=== PATIENT | female | born 1970 | race Caucasian/White ===

== ENCOUNTER → 2019-10-26 10:50 | Outpatient (BNVA) | payer MEDICAID, SELFPAY | PROVIDERS: Family Provider Nurse Practitioner Family; Visit Provider Social Worker | DX: F43.12 Post-traumatic stress disorder, chronic (principal) | CPT/HCPCS: 90834 ==

== ENCOUNTER → 2019-11-30 09:15 | Outpatient (BNVA) | payer MEDICAID, SELFPAY | PROVIDERS: Family Provider Nurse Practitioner Family; Visit Provider Nurse Practitioner | DX: F43.12 Post-traumatic stress disorder, chronic (principal); F17.211 Nicotine dependence, cigarettes, in remission | CPT/HCPCS: 99213 ==

== ENCOUNTER 2020-01-31 08:21 | Outpatient (CLI) | payer MEDICAID, SELFPAY ==
--- NOTE | 2020-01-31 | CT_ITS ---
WS: [id number] CT ABDOMEN AND PELVIS NONCONTRAST HISTORY: HEMATURIA TECHNIQUE: Imaging performed through the abdomen and pelvis. Coronal and sagittal reformats are submi tted. All CT scans at [facility] use at least one of these dose optimization techniques: automated exposure control; mA and/or kV adjustment per patient size (includes targeted exams where d ose is matched to clinical indication); or iterative reconstruction. DLP: 759.37 mGy.cm COMPARISON: 11/19/2018 Lower thorax: Linear platelike atelectasis at the RIGHT lung base. Liver: Normal, no mass or intrahepatic dilatation. Gallbladder: Unremarkable. Pancreas: Normal. Spleen: Normal. Adrenal glands: Normal. Right kidney: Mild enlargement and perinephric stranding. There is mild to moderate dilatation of the RIGHT renal pelvis and RIGHT ureter. Mildly tortuous elongated ureter. The ureter is dilated through out its course secondary to 5 mm calcification at the UV junction. There is moderate periureteral william ma and stranding. Left kidney: Partial nephrectomy lower pole. Recently described small cyst in the mid kidney is not e vident by unenhanced CT. Mild atherosclerosis aorta with no aneurysm. Prior abdominal aorta bypass surgery. There is also evid ence for prior bypass of the celiac axis and possible SMA. No prior postsurgical studies to evaluate for interval change. There are a few small shoddy retroperitoneal lymph nodes. No adenopathy. GI tract: Normal appendix. Moderate fecal retention throughout the colon with no obstructive pattern. Abdominal wall: Postsurgical changes along the anterior abdominal wall. Pelvis: Well-distended urinary bladder. No free fluid in the pelvis. Osseous structures: Unremarkable. CT/CT kidney stone [id number] IMPRESSION: 1. Mild/moderate RIGHT hydroureteronephrosis secondary to a 5 mm calcification at the UV junction. 2. Moderate inflammatory changes in the RIGHT retroperitoneum from the obstruc tive renal process with tortuosity of the RIGHT ureter. 3. Partial nephrectomy lower pole LEFT kidney. 4. Prior abdominal aorta bypass.
--- NOTE | 2020-01-31 08:00 | US_ITS ---
WS: [id number] RENAL ULTRASOUND HISTORY: Renal cyst COMPARISON: 12/27/2018 TECHNIQUE: 2-D and color Doppler imaging of the kidney submitted. Right kidney: 12.7 cm x 6.3 cm x 6.8 cm. Normal size kidney with moderate hydronephrosis. Proximal ureter is dilated. No mass. Left kidney: 10.4 cm x 4.5 cm x 6.2 cm. Cortical thinning lower pole LEFT kidney. By history patient had a partial nephrectomy. Cortical hypo density which is probably a minimally complex cyst in the mid kidney measures 1.5 x 1.4 x 1.3 cm. Aorta: Normal. Urinary Bladder: Minimally distended urinary bladder. US/US renal BI* [id number] IMPRESSION: 1. Moderate RIGHT hydronephrosis of uncertain etiology. Consider follow-up non contrast CT evaluation to evaluate for possible renal/ureteral stone. 2. Partial nephrectomy lower pole LEFT kidney. 3. Minimally complex cyst mid LEFT kidney similar to the prior study of 019.
== END 2020-01-31 08:22 | disposition home or self-care (01) ==
LOC: RAD 08:23
PROVIDERS: Family Provider Nurse Practitioner Family; PCP Nurse Practitioner Family; Visit Provider Urology
DX: R31.9 Hematuria, unspecified (principal); N28.1 Cyst of kidney, acquired; N13.30 Unspecified hydronephrosis; Z90.5 Acquired absence of kidney; N13.8 Other obstructive and reflux uropathy
CPT/HCPCS: 74176; 76770; 81001

== ENCOUNTER 2020-02-09 08:29 | Outpatient (CLI) | payer MEDICAID, SELFPAY ==
--- NOTE | 2020-02-09 08:15 | XR_ITS ---
WS: [id number] XR KUB [id number] REASON FOR EXAM: RIGHT DISTAL URETERAL CALCULUS FINDINGS: A calcified density is seen in the distal right ureter area suspicious of a small stone the remaining kidneys ureter were normal. No obstructing changes. XR/XR KUB [id number] IMPRESSION: Stable small stone in the distal right ureter.
== END 2020-02-09 08:30 | disposition home or self-care (01) ==
LOC: RAD 08:31
PROVIDERS: Family Provider Nurse Practitioner Family; PCP Nurse Practitioner Family; Visit Provider Urology
DX: N20.1 Calculus of ureter (principal)
CPT/HCPCS: 74018; 81001; 82365

== ENCOUNTER → 2020-02-22 07:42 | Outpatient (BNVA) | payer MEDICAID, SELFPAY | PROVIDERS: Family Provider Nurse Practitioner Family; PCP Nurse Practitioner Family; Visit Provider Nurse Practitioner | DX: F43.12 Post-traumatic stress disorder, chronic (principal) | CPT/HCPCS: 90832; 99213 ==

== ENCOUNTER → 2020-05-09 08:30 | Outpatient (BNVA) | payer MEDICAID, SELFPAY | PROVIDERS: Family Provider Nurse Practitioner Family; PCP Nurse Practitioner Family; Visit Provider Nurse Practitioner | DX: F43.12 Post-traumatic stress disorder, chronic (principal) | CPT/HCPCS: 99213 ==

== ENCOUNTER → 2020-08-01 08:00 | Outpatient (BNVA) | payer MEDICAID, SELFPAY | PROVIDERS: Family Provider Nurse Practitioner Family; PCP Nurse Practitioner Family; Visit Provider Nurse Practitioner | DX: F43.12 Post-traumatic stress disorder, chronic (principal); F17.211 Nicotine dependence, cigarettes, in remission | CPT/HCPCS: 99214 ==

== ENCOUNTER → 2020-09-05 07:54 | Outpatient (BNVA) | payer MEDICAID, SELFPAY | PROVIDERS: Family Provider Nurse Practitioner Family; PCP Nurse Practitioner Family; Visit Provider Nurse Practitioner | DX: F43.12 Post-traumatic stress disorder, chronic (principal) | CPT/HCPCS: 99213 ==

== ENCOUNTER → 2020-09-10 08:08 | Outpatient (BNVA) | payer MEDICAID, SELFPAY | PROVIDERS: Family Provider Nurse Practitioner Family; PCP Nurse Practitioner Family; Visit Provider Specialist | DX: G62.9 Polyneuropathy, unspecified (principal); R20.2 Paresthesia of skin; R20.0 Anesthesia of skin; D44.5 Neoplasm of uncertain behavior of pineal gland; Z87.891 Personal history of nicotine dependence | CPT/HCPCS: 95886; 95909; 99202; G0463 ==

== ENCOUNTER → 2020-10-17 07:50 | Outpatient (BNVA) | payer MEDICAID, SELFPAY | PROVIDERS: Family Provider Nurse Practitioner Family; PCP Nurse Practitioner Family; Visit Provider Nurse Practitioner | DX: F43.12 Post-traumatic stress disorder, chronic (principal) | CPT/HCPCS: 99213 ==

== ENCOUNTER → 2021-02-18 10:47 | Outpatient (BNVA) | payer MEDICAID, SELFPAY | PROVIDERS: Family Provider Nurse Practitioner Family; PCP Nurse Practitioner Family; Visit Provider Specialist | DX: D44.5 Neoplasm of uncertain behavior of pineal gland (principal); R20.0 Anesthesia of skin; R20.2 Paresthesia of skin; Z87.891 Personal history of nicotine dependence | CPT/HCPCS: 99214 ==

== ENCOUNTER 2021-02-18 12:23 | Outpatient (CLI) | payer MEDICAID, SELFPAY ==
[2021-02-18 13:59] LABS: Folate Level 6.2 ng/mL (4.8-37.3)
[2021-02-18 14:02] LABS: C Reactive Protein 0.6 mg/L (0.0-4.9); Thyroid Stimulating Hormone 0.82 uIU/mL (0.27-4.20)
[2021-02-18 14:20] LABS: Erythrocyte Sedimentation Rate 10 mm/hr (0-15)
[2021-02-18 14:59] LABS: Vitamin B12 > 2000 pg/mL (232-1245)
[2021-02-19 12:43] LABS: CENTROMERE B ANTIBODY <1.0 NEG AI (<1.0 NEG); JO-1 ANTIBODY <1.0 NEG AI (<1.0 NEG); RNP ANTIBODY <1.0 NEG AI (<1.0 NEG); SCL-70 ANTIBODY <1.0 NEG AI (<1.0 NEG); SJOGREN'S ANTIBODY (SS-A) <1.0 NEG AI (<1.0 NEG); SM ANTIBODY <1.0 NEG AI (<1.0 NEG); SS-B <1.0 NEG AI (<1.0 NEG)
[2021-02-19 17:14] LABS: THYROID PEROXIDASE ANTIBODIES 1 IU/mL (<9)
[2021-02-20 11:22] LABS: COMPLEMENT COMPONENT C3C 113 mg/dL (83-193); COMPLEMENT COMPONENT C4C 20 mg/dL (15-57)
[2021-02-20 12:27] LABS: COMPLEMENT, TOTAL (CH50) 43 U/mL (31-60)
[2021-02-20 13:34] LABS: ANA SCREEN, IFA NEGATIVE (NEGATIVE)
[2021-02-24 03:43] LABS: Methylmalonic Acid 75 nmol/L (87-318)
[2021-02-24 23:53] LABS: DNA AB (DS) CRITHIDIA,IFA NEGATIVE (NEGATIVE)
== END 2021-02-18 12:24 | disposition home or self-care (01) ==
PROVIDERS: Family Provider Nurse Practitioner Family; PCP Nurse Practitioner Family; Visit Provider Specialist
DX: R20.0 Anesthesia of skin (principal); R20.2 Paresthesia of skin
CPT/HCPCS: 82607; 82746; 83921; 84260; 84443; 85651; 86140; 86160; 86162; 86235; 86255; 86376; 86431

== ENCOUNTER → 2021-03-06 08:06 | Outpatient (BNVA) | payer MEDICAID, SELFPAY | PROVIDERS: Family Provider Nurse Practitioner Family; PCP Nurse Practitioner Family; Visit Provider Nurse Practitioner | DX: F43.12 Post-traumatic stress disorder, chronic (principal) | CPT/HCPCS: 99214 ==

== ENCOUNTER → 2021-04-24 15:13 | Outpatient (BNVA) | payer MEDICAID, SELFPAY | PROVIDERS: Family Provider Nurse Practitioner Family; PCP Nurse Practitioner Family; Visit Provider Nurse Practitioner | DX: F43.12 Post-traumatic stress disorder, chronic (principal) | CPT/HCPCS: 99214 ==

== ENCOUNTER 2021-05-02 07:35 | Outpatient (CLI) | payer MEDICAID, SELFPAY ==
--- NOTE | 2021-05-02 07:30 | XR_ITS ---
WS: [id number] XR KUB [id number] REASON FOR EXAM: N20.1 - Calculus of ureter FINDINGS: The examination is unchanged compared to previous study of 02/09/2020. No intrarenal calculi are identified. CT scan 01/31/2020 demonstrated a very small calculus in the right ureteral vesicle junction with righ t hydronephrosis. A KUB report indicated presence of the calculus 02/09/2020. The pelvis calcifications are unchanged at this time making it very unlikely that the previous calculus was a small ureteroves ical stone. Likely that stone was not visualized or had passed. XR/XR KUB [id number] IMPRESSION: The current abdomen study is unchanged compared to the previous study. No right ureteral calculus is thought to be present as discussed above.
== END 2021-05-02 07:36 | disposition home or self-care (01) ==
LOC: RAD 07:41
PROVIDERS: PCP Nurse Practitioner Family; Visit Provider Urology
DX: N20.1 Calculus of ureter (principal)
CPT/HCPCS: 74018; 81003; 87077; 87086; 87184

== ENCOUNTER 2021-05-03 12:52 | Outpatient (CLI) | payer MEDICAID, SELFPAY ==
--- NOTE | 2021-05-03 13:01 | MR_ITS ---
WS: [id number] MRI RIGHT SHOULDER ARTHROGRAM TECHNIQUE: Axial PD, coronal T2, axial T1, post gadolinium coronal T1, sagittal T1, and coronal T2 po st gadolinium fat saturation technique CLINICAL INFORMATION: PAIN OF RIGHT SHOULDER JOINT COMPARISON: None. FINDINGS: Mild degenerative arthritis AC joint with mild downsloping of the acromion. No significant subacromia l/subdeltoid fluid. Minimal edema at the AC joint. Mild chronic thinning of the distal supraspinatus which appears intact. Normal infraspinatus. Normal teres minor. Normal subscapularis. No high-grade r otator cuff tear. Normal biceps tendon in the bicipital groove. Normal bone marrow signal in the humerus and glenoid. N ormal biceps labral anchor.Normal intra-articular biceps tendon. Glenoid labrum appears normal. No acute appearing labral tears. Normal middle glenohumeral ligament. MR/MR shoulder RT wo/w con [id number] IMPRESSION: 1. Mild degenerative arthritis at the AC joint with mild downsloping of the ac romium with slight impingement on the distal supraspinatus. Mild chronic thinni ng of the distal supraspinatus which appears intact with trace tendinopathy. 2. Rotator cuff is otherwise normal. 3. Normal intra-articular biceps tendon. Normal biceps tendon in the bicipital groove. 4. Normal biceps labral anchor. No acute appearing labral tears.
--- NOTE | 2021-05-03 13:04 | IR_ITS ---
WS: [id number] Exam: IR arthrogram shoulderRT [id number] Date/Time of Exam: 05/03/2021 1:05 PM Reason For Exam: PAIN IN RIGHT SHOULDER The procedure and potential complications were explained to the patient in detail. Written exams obta ined. The right shoulder was prepped and draped in a sterile fashion. The soft tissues were anesthetized wi th several cc of 1% Xylocaine. A 22-gauge spinal needle was positioned in the glenohumeral joint. Sev eral cc of nonionic radiographic contrast injected to confirm needle location. Approximately 13 cc of a solution consisting of 0.4 mg of gadolinium with 100 mL of sterile saline were injected into the r ight glenohumeral joint under fluoroscopic visualization. The patient tolerated the procedure without incident.
[2021-05-03] MEDS: iohexol 240 mg/mL 50 mL Btl INTRA-ARTI (14:01)
== END 2021-05-03 12:53 | disposition home or self-care (01) ==
PROVIDERS: PCP Nurse Practitioner Family; Visit Provider Nurse Practitioner Family
DX: M19.011 Primary osteoarthritis, right shoulder (principal)
CPT/HCPCS: 23350; 73223; 77002; Q9966

== ENCOUNTER → 2021-06-20 09:20 | Outpatient (BNVA) | payer MEDICAID, SELFPAY | PROVIDERS: PCP Nurse Practitioner Family; Visit Provider Nurse Practitioner Family | DX: N30.20 Other chronic cystitis without hematuria (principal) | CPT/HCPCS: 81003; 87086 ==

== ENCOUNTER 2021-07-26 07:57 | Outpatient (CLI) | payer MEDICAID, SELFPAY ==
--- NOTE | 2021-07-26 08:00 | CT_ITS ---
WS: [id number] CT ABDOMEN PELVIS TECHNIQUE: Noncontrast CT of the abdomen and contrast-enhanced CT of the abdomen and pelvis with mansoor nal and sagittal reformatted images. CLINICAL INFORMATION: HEMATURIA COMPARISON: CT January 31, 2020 DLP: 1447.[address] scans at [facility] use at least one of these dose optimization techniques: automated e xposure control; mA and/or kV adjustment per patient size (includes targeted exams where dose is matc hed to clinical indication); or iterative reconstruction. FINDINGS: Prior postoperative changes partial nephrectomy lower pole left kidney. Previously described right hy dronephrosis has resolved. No obstructing right renal ureteral calculi today. Tiny calculus at the left UPJ measuring 3 mm. Mild left ureterectasis at the left UPJ. Diffuse left u reteral enhancement with stricture in the left proximal ureter just distal to the UPJ and distal to t he calculus. Apparent stricture in this location. Recommend correlation with ureteroscopy to exclude underlying urothelial lesion. Ureter distal to the stricture is normal caliber. Delayed ureteral excr etion. Normal left renal parenchymal enhancement. Numerous left renal cysts the largest measuring 2.0 cm in the left. Lung bases are well aerated. Adrenal glands are normal. Normal caliber abdominal aorta. Aortic calcif ication. No evidence of small or large bowel obstruction. No free fluid in the pelvis. Mild bladder wall thick ening. Small fat-containing periumbilical hernia. Upper abdominal mesenteric bypass. Celiac stent. Le ft ovarian cyst measuring 2.[address]/CT abdomen pelvis wo/w [id number] IMPRESSION: 1. Small calculus at the left UPJ measuring 3 mm with diffuse urothelial enhan cement. Stricture distal to the calculus with partial ureteral obstruction and delayed emptying. No contrast middle and distal ureter on the delayed imaging. Recommend further evaluation with ureteroscopy to assess stricture and exclude underlying urothelial lesion. 2. Bilateral renal cysts largest in the left measuring 2 cm. 3. Fat-containing umbilical hernia. 4. Previously described right hydronephrosis has resolved. No obstructing righ t renal or ureteral calculi.
[2021-07-26] MEDS: iohexol 300 mg/mL 100 mL Btl IV (08:28)
== END 2021-07-26 07:58 | disposition home or self-care (01) ==
LOC: RAD 07:59
PROVIDERS: PCP Nurse Practitioner Family; Visit Provider Urology
DX: F43.12 Post-traumatic stress disorder, chronic (principal); F41.1 Generalized anxiety disorder; R31.9 Hematuria, unspecified
CPT/HCPCS: 74178; 81003; 87635; 99214

== ENCOUNTER 2021-08-01 11:14 | Day surgery (SDC) | payer MEDICAID, SELFPAY ==
[2021-07-31 14:49] VITALS: BMI 22.9
[2021-08-01] VITALS (17 sets, daily range): BP systolic 123–147; BP diastolic 73–89; PULSE 51–88; RESP 12–19; TEMP 36.3–37.1; O2SAT 94–100; BMI 25.1
--- NOTE | 2021-08-01 | SCC_ITS ---
Procedure Done: 1. Cystoscopy with LEFT retrograde ureteropyelogram 2. Left ureteroscopy 162.3 seconds of fluoroscopic guidance, for a cumulative dose of 25.04 mGy, was provided to Dr. Jones by the radiology department. C-arm images of the abdomen were saved for the patient's permanent record. [facility]
--- NOTE | 2021-08-01 11:38 | SC_ITS ---
WS: [id number] Exam: C-arm FL for Urology Date/Time of Exam: 08/01/2021 11:38 AM Reason For Exam: Left ureteroscopy C-arm images of the left abdomen during a left retrograde pyelography are provided for evaluation. A persistent filling defect is noted just below the ureteropelvic junction of the left kidney and sugge sts a stone. No other obvious ureteral filling defects are seen. There appear to be several small air bubbles in the lower ureter. Contrast opacification of the left kidney shows no gross filling defect . IL/C-arm FL for Urology IMPRESSION: 1. Filling defect in the proximal left ureter suggesting a retained stone. No s ignificant pyelocalyceal or ureteral dilatation is noted. 2. A ureteroscope is visualized in the lower ureter on one series of the exam.
--- NOTE | 2021-08-01 11:47 | ECG_ITS ---
[facility] Test Date: 2021-08-01 Pat Name: Chelsea Najera Department: Room: Gender: Female Lay Brother: : 1970 Requested By: Monty Mcintyre Order Number: [id number] Louis MD: Diana Colbert M.D. Measurements Intervals Hoffman Rate: 48 P: 38 NH: 143 QRS: 46 QRSD: 81 T: 72 QT: 481 QTc: 434 Interpretive Statements SINUS BRADYCARDIA No previous ECG available for comparison Electronically Signed On 08-02-2021 0:00:16 CDT by Diana Colbert M.D. [id number]
[2021-08-01] MEDS: sodium chloride 0.9% 1,000 ML 30 ML IV (12:26)
--- NOTE | 2021-08-01 12:49 | ANES.PREANE2 ---
Pre-Anesthetic Assessment Pre-Anesthetic Assessment: Height/Weight: Height 1.65 m Weight 62.596 kg Temp Pulse Resp BP Pulse Ox 97.4 F L 51 L 16 137/77 98 08/01/21 11:40 08/01/21 11:40 08/01/21 11:40 08/01/21 11:40 08/01/21 11:40 Preop Diagnosis: Left renal calculus, filling defect left ureter Proposed Procedure: Operation Date: 08/01/21 13:05 Proposed Procedures p Laser Lithotripsy w/ poss biopsy [id number] R93.41(Not Applicable) - Stanislaw Jones MD s Cystoscopy(Not Applicable) - MD arnoldo Barr Retrograde Pyelogram(Left) - MD arnoldo Barr Ureteroscopy(Not Applicable) - MD arnoldo Barr Ureteral Stent Placement(Not Applicable) - Stanislaw Jones MD Was Beta Radha taken within 24 hours: Yes Was Clonidine taken within 24 hours: N/A Last intake: Intake Last Liquid Date 08/01/21 Last Liquid Time 09:00 Last Solid Date 07/31/21 Last Solid Time 21:00 Exam: Pre-Anes Outpt Exam: alert, oriented x 3, clear to auscultation bilaterally and regular rate & rhythm Airway: Submandibular: WNL Cervical ROM: WNL MP: 2 History/ROS: No significant complaints CV/HEM: CV/HEM: HTN GI: GI: GERD Metabolic: Metabolic: Hyperlipidemia Neuropsych: Neuropsych: Anxiety Anesthetic Plan: ASA status: 2 Anesthesia: Anesthesia Evaluation and General Risk of > 500 ml blood loss (7ml/kg in children): No Meds/Allergies Current Medications: Current Medications Generic Name Dose Route Start Last Admin Trade Name Freq PRN Reason Stop Dose Admin Sodium Chloride 1,000 mls @ 30 ml s/hr 08/01/21 11:45 08/01/21 12:26 Sodium Chloride 0.9% IV 08/02/21 11:44 30 mls/hr .Q24H CHICO Administration PFSH Anesthesia PFSH: Medical History (Updated 07/26/21 @ 14:25 by Stanislaw Jones MD) Nicotine dependence, cigarettes, in remission Post-traumatic stress disorder, chronic Recurrent UTI Renal cell carcinoma Renal cyst Urolithiasis Surgical History (Updated 07/31/21 @ 14:51 by Ml Davila) History of partial nephrectomy Hx of CABG Family History Mother No problems noted. Father CAD (coronary artery disease) Social History Alcohol intake: never Marital status: Current occupational status: disabled History of recent travel: Yes ([place]) Details: Last week of January 2021 Out of state: Yes Out of country: No Data Anesthesia Cardiac Studies: No Data to Display
--- NOTE | 2021-08-01 14:26 | W.PM.OPSUD ---
Surgery/Procedure H&P Update DATE OF PROCEDURE: August 01, 2021 DATE H&P PERFORMED: 07/25/21 H&P UPDATE INFORMATION: I have reviewed H&P completed within last 30 days, I have examined patient prior to procedure, No changes to prior documentation and H&P is in [facility] EMR on date indicated PREOP DIAGNOSIS: Left renal calculus, filling defect left ureter PLANNED PROCEDURE: Operation Date: 08/01/21 13:05 Proposed Procedures p Laser Lithotripsy w/ poss biopsy [id number] R93.41(Not Applicable) - Stanislaw Jones MD s Cystoscopy(Not Applicable) - MD arnoldo Barr Retrograde Pyelogram(Left) - MD arnoldo Barr Ureteroscopy(Not Applicable) - Stanislaw Jones MD s Ureteral Stent Placement(Not Applicable) - Stanislaw Jones MD
--- NOTE | 2021-08-01 14:36 | PM.OP ---
Operative Report Date of procedure: August 01, 2021 Pre-op Diagnosis: Left renal calculus, filling defect left ureter Procedure Done: 1. Cystoscopy with LEFT retrograde ureteropyelogram 2. Left ureteroscopy Implants: None Specimens removed/disposition: None Surgeon: Robert Anesthesia: General Estimated blood loss: Minimal Complications: 1. Could not advance the wire past the left UPJ/stone. 2. Under fluoroscopic monitoring it appeared that the wire perforated at the UPJ. 3. Unsuccessful attempt to perform direct visualization with flexible scope and negotiate the area of concern. 4. Procedure abandoned due to inability to successfully navigate the left UPJ and evidence of perforation with a small amount of extravasation at the UPJ Condition: stable Disposition: PACU Brief History: Chelsea is a very pleasant 51-year-old white female with a history of urolithiasis who recently presented with complaints of left renal colicky type symptoms and gross hematuria. Complicating issues was the fact that she had a history of renal cell carcinoma of the left lower pole with papillary changes status post partial nephrectomy in 2007 with NO EVIDENCE RECURRENCE since. Also has had a history of CHRONIC CYSTITIS. A CT scan was performed based on her above history and contrast was utilized. Findings showed a small stone in the left renal pelvis, enhancement of the urothelium of the left renal pelvis, possibly soft tissue density (interpreted a stricture by radiology) just below the left UPJ. None of those findings were present on previous CT scan reviewed. A cystoscopy showed no evidence of bladder pathology and she is admitted now for endoscopic evaluation of her left upper urinary tract. Plan would be to treat the stone if access to it is readily attainable and no other significant pathology identified that would necessitate more extensive extirpative therapy. Procedure: After routine preoperative evaluation examination and obtaining of informed consent she was taken to the operating suite on 08/01/2021 where general anesthesia was administered without difficulty after appropriate timeout was performed, SCDs confirmed to be functioning, preoperative antibiotics administered, beta-flor protocol confirmed. Prepped and draped in the usual sterile fashion in dorsolithotomy position paying careful attention to avoiding pressure points. 21 Serbian cystoscope with 30 degrees lens was introduced into the urethral meatus and advanced into the bladder to videoscopy. The bladder was systematically examined and found to be within normal limits. An 8 Serbian cone-tip catheter was intubated to the left ureteral orifice for LEFT retrograde ureteropyelogram: The left distal ureter showed a couple areas of narrowing in the first 6 cm. The contrast proximal to that flowed easily into the proximal ureter where there was a filling defect below the left UPJ consistent with the stone seen on CT scan. The ureter proximal to the stone was tortuous. I could not clearly see a filling defect above that but it did appear to be somewhat narrowed consistent with the previous CT scan findings. The pyelocalyceal system was somewhat dilated. A flexible tip guidewire was then advanced up the left ureter but could not be easily passed beyond the most distal narrowed area mentioned above. A Glidewire was then attempted and it also was not successful. An open-ended ureteral catheter was placed over the Glidewire and this allowed easy passage under no tension of the Glidewire above the area. The Glidewire was then passed and in the proximal ureter bypassed the area consistent with a stone but could not be easily manipulated through the tortuous area and appeared to take an apparent course. This was surprising and that the tension placed on the guidewire was no more than usual and passing a wire. The wire was withdrawn and open-ended ureteral catheter was advanced and contrast was injected after the guidewire was removed below the level of the stone and there was no extravasation identified in the course of the contrast which followed the tortuous ureter into the renal pelvis. A second attempt at passing the wire was again unsuccessful with the same course followed. The wire was pulled back into the mid ureter and it was decided to try, with direct visualization manipulation of the wire through this area into the true lumen into the renal pelvis to allow placement of ureteral stent for salvage of the procedure. The distal ureter was then dilated with a 15 Serbian 10 cm balloon with no waist. A second guidewire was then passed to the mid ureter and a 7 Serbian flexible ureteroscope was then advanced over the working wire (the other wire had been secured to the drapes as a safety wire). The scope was manipulated through the distal narrowed area easily and into the proximal ureter. The filling defect seen on the retrograde was confirmed to be a stone. There was no bleeding and there was no significant inflammatory change around the stone. There was a sharp angulation of the ureter anterior and laterally proximal to the stone. The scope could not be easily manipulated beyond this. And a Glidewire was passed through the scope but again was unsuccessful navigating the tortuous area in the area of concern for perforation. Contrast was reinjected and thankfully the vast bulk of contrast did follow the course of the ureter into the renal pelvis but there was a small area of extravasation. At this point the procedure was terminated in order to avoid any further trauma to the area. Plans will be made to pursue a percutaneous nephrostomy tube placement in [place] where interventional radiology is available and if possible, antegrade passage of a stent to allow for healing. Due to the concern for perforation no attempt was made to definitively treat the stone. It did not appear to be significantly involved in an obstructive process on the initial retrograde. There was not a lot of inflammatory involvement around the stone.
[2021-08-01] MEDS: levofloxacin-dextrose 5 % 500 MG/100 ML PREMIX 100 MG IV (14:50)
--- NOTE | 2021-08-01 16:51 | SUR.PHASEI ---
DR DORAN AT BEDSIDE , TALKED WITH PT ABOUT THE NEED TO STAY OVERNIGHT, VSS PT DENIES PAIN AND NAUSEA, PT ALERT AND TALKATIVE WITH DR DORAN.
[2021-08-01] MEDS: topiramate 100 mg Tablet PO (17:58)
[2021-08-01] MEDS: dextrose 5%-sod chloride 0.9% 1,000 ML 50 ML IV (17:58)
[2021-08-01] MEDS: HYDROcodone-acetaminophen 5-325 mg Tablet 1 TAB PO (17:58)
[2021-08-01] MEDS: morphine 4 mg/mL SDV 1 mL 2 MG IVP ×2 (20:43→22:41)
[2021-08-02] VITALS (11 sets, daily range): BP systolic 94–131; BP diastolic 56–73; PULSE 57–70; RESP 17–19; TEMP 36.3–37.7; O2SAT 94–100
[2021-08-02 03:01] LABS: Basophils % 0.2 %; Hematocrit 38.5 % (37.0-47.0); Hemoglobin 12.4 g/dL (11.5-15.3); Lymphocytes # 0.7 10^3/uL (0.8-4.8); Lymphocytes % 6.5 %; Mean Corpuscular HGB Conc 32.2 g/dL (30.0-36.0); Mean Corpuscular Hemoglobin 31.4 pg (28.0-34.0); Mean Corpuscular Volume 97.5 fl (81-99); Mean Platelet Volume 9.7 fL (7.4-10.4); Monocytes # 0.4 10^3/uL (0.2-0.9); Monocytes % 4.1 %; Neutrophils # 8.82 10^3/uL (1.8-7.7); Neutrophils % 88.9 %; Nucleated Red Blood Cells % 0 %; Platelet Count 281 10^3/cmm (130-400); Red Blood Count 3.95 10^6/uL (4.1-5.3); Red Cell Distribution Width 12.6 % (12.1-15.1); White Blood Count 9.9 10^3/uL (4.0-10.0)
[2021-08-02] MEDS: HYDROcodone-acetaminophen 5-325 mg Tablet 1 TAB PO (03:28)
--- NOTE | 2021-08-02 06:26 | ANE.PACU2 ---
Inpatient post-anesthesia follow up: Airway intact: Yes Vital signs: Temperature 98.8 F Pulse Rate 61 Respiratory Rate 17 Blood Pressure 98/57 Pulse Oximetry 94 Oxygen Delivery Me thod Room Air Oxygen Flow Rate 8 Fraction of Inspir ed Oxygen Hydration adequate: Yes Nausea and vomiting: No Pain level: 2 Mental status: Baseline
[2021-08-02] MEDS: buPROPion XL (24 HR) 300 mg Tablet PO (07:03)
--- NOTE | 2021-08-02 07:26 | XR_ITS ---
WS: [id number] 1 VIEW(S) HISTORY: left renal calculus COMPARISON: CT 07/26/2021 and KUB 05/02/2021 Slight increased amount of air in the small bowel but no obstructive pattern. Possible 4 mm calcification overlying the LEFT L3 transverse process. This would correspond to previo usly described calcification that was in the more proximal ureter. There are small phleboliths in the pelvis. No bone abnormality. XR/XR KUB portable [id number] IMPRESSION: 1. Suspicious for 4 mm calcification projecting over the LEFT L3 transverse pr ocess. Similar size to the stone previously described in more proximal LEFT ure ter. 2. Very minimal increased amount of air in the small bowel.
--- NOTE | 2021-08-02 07:26 | PC.NURSE ---
Patient was in pain most of night. Medications given per MD order. Patient expressed that she did not have pain before surgery and after 2nd dose of Morphine had some relief but not complete. Will continue to monitor.
[2021-08-02] MEDS: duloxetine 20 mg Capsule PO (08:47)
[2021-08-02] MEDS: diazePAM 5 mg Tablet PO (08:47)
[2021-08-02] MEDS: sennosides-docusate Tablet 1 TAB PO ×2 (08:47→18:25)
[2021-08-02] MEDS: pantoprazole DR 40 mg Tablet PO (08:48)
[2021-08-02] MEDS: topiramate 100 mg Tablet PO ×2 (08:48→18:25)
[2021-08-02] MEDS: losartan 50 mg Tablet 25 MG PO (08:48)
[2021-08-02] MEDS: metoprolol succinate ER (24 HR) 25 mg Tablet PO (08:48)
[2021-08-02] MEDS: atorvastatin 40 mg Tablet 20 MG PO (08:49)
[2021-08-02] MEDS: HYDROcodone-acetaminophen 5-325 mg Tablet PO ×3 (08:53→18:25)
[2021-08-02] MEDS: morphine 4 mg/mL SDV 1 mL 2 MG IVP ×3 (08:53→18:49)
--- NOTE | 2021-08-02 10:25 | PC.CHAP ---
Pastoral Care Encounter/Spiritual Assessment Type of Contact [] Declined log sawyer visit [] Patient/Family/Request visit [] Outpatient visit [] Follow-up visit [] Physician referral [] Code/Alert [x] Routine visit [] Staff referral [] Actively dying [] Patient sleeping [] Family support [] [] Out of room [] Palliative care [] [] Receiving care in room [] Pre-surgical visit [] Trauma [] Long length of stay [] ICU visit [] Other: Relational/Emotional Strength [x] Patient feels connected with others/family/visitors/staff [] Distress [] Loneliness/isolation [] Abandonment Spirituality of Patient [x] Person of Pam [x] Attends Druze of their Pam [x] Believes in Prayer [] Reads Bible or Caodaism materials [] There are Spiritual issues to be addressed Glass Sagger Interventions [x] Prayer [] Active listening [] Non-anxious presence [] Spiritual/emotional support [] Crisis/trauma care [] Spiritual counseling [] Bereavement support [] Provided bereavement packet [] Provided Bible/devotional materials [] Provided toy/stuffed animal, coloring book to patient or family member [] Provided Communion [] Anointing/[place] [] Salvation [x] Completed spiritual assessment [] Other: Impact on Illness or Injury [] Angry [] Fearful [] Anxious [] Often cries [] Exhaustion [] Unable to work [] Unable to attend quaker [] Unable to walk/stand [] Unable to read [] Unable to drive [] Unable to eat/drink [] Unable to sleep [] Unable to be with family [] Patient intubated [] Other: Summary Time spent with patient 10 lupis
[2021-08-02] MEDS: dextrose 5%-sod chloride 0.9% 1,000 ML 50 ML IV (15:25)
--- NOTE | 2021-08-02 15:29 | PM.DCS ---
Discharge Providers Date of Discharge: August 02, 2021 Attending Provider at Discharge: Stanislaw Jones MD Primary Care Provider: Nirali Orellana-Duke Diagnoses at Discharge Discharge Diagnosis (1) Ureter perforation: Status: Acute Permanent problem details: Occurred with passage of a wire and attempting left ureteroscopy July 2021. Could not get wire to pass and therefore no stent (2) Left ureteral calculus: Status: Acute Permanent problem details: Stone not treated in order to avoid exacerbation of ureteral trauma after intraoperative guidewire perforation identified (3) Urinary extravasation: Status: Acute Permanent problem details: Small amount of intraoperative LEFT UPJ area extravasation after attempt at wire passage for ureteroscopy (4) Left flank pain: Status: Acute (5) History of renal cell carcinoma: Status: Acute Permanent problem details: Status post LEFT partial nephrectomy remotely with no evidence of recurrence (6) Atherosclerotic coronary vascular disease: Status: Acute Permanent problem details: Status post CABG. No recurrent symptoms (7) Peripheral vascular disease: Status: Acute Permanent problem details: Status post multiple vascular procedures for fairly diffuse peripheral vascular disease. (8) Post-traumatic stress disorder, chronic: Status: Acute Reason for Visit Reason for Visit: Abnormal inaging findings Hospital Course Hospital Course [place] was admitted through the outpatient surgery department on 08/01/2021 for further evaluation of gross hematuria lateralizing to the left ureter on cystoscopy, abnormal CT scan showing enhanced uroepithelium of the renal pelvis, left UPJ mucosa, and possibly a soft tissue density in the proximal ureter. She was seen on the same CT scan to have a small stone in the left renal pelvis. Etiology of the hematuria was not clear but it was presumed that the stone was likely involve. The left proximal ureter did show a filling defect and therefore could not rule out additional causes. Intraoperative findings: 1. Distal ureteral narrowing requiring dilation in order to pass a guidewire. Ureteroscope easily passed distal ureteral narrowing after dilation. No significant pathology identified 2. Tortuous course of the left proximal ureter/UPJ with a filling defect DISTAL to the left UPJ that appeared to be consistent with a stone seen on CT scan. This would represent a change in position from the CT scan from the renal pelvis to the UPJ. Only mild dilation of the pyelocalyceal system was noted on retrograde pyelogram 3. Apparent course of a flexible tip guidewire early on first passage which was surprising given the lack of any unusual feel or tension passing. Initial repeat retrograde showed no evidence of extravasation. 4. With the wire in the mid ureter a flexible ureteroscope was passed and the filling defect was noted to be a stone. There was a sharp bend in the ureter just proximal to the stone and attempts at manipulating the wire proximal to the sharp bend showed essentially the same path of the wire passage aberrantly as noted above. 5. Repeat contrast injection did show contrast still making it up into the renal pelvis and filling the tortuous proximal ureter but on this attempt there was some mild extravasation. The pyelocalyceal system was more distended. 6. In order to avoid any further damage it was decided to abandon the procedure and make plans to have transferred to interventional radiology capable facility for percutaneous nephrostomy tube placement and if possible antegrade stent placement. 7. Once contrast extravasation was identified no further attempt at passing a wire or dealing with a stone was made. Postoperative course: 1. As expected she had typical renal colicky pain that night. No fever or chills. Her vital signs were stable and other than pain she had no other significant concerns. 2. The patient lives close to [place] and had been cared for for her cardiac atherosclerotic as well as peripheral vascular disease at [facility] in [place]. Attempts at transfer began that night and were unsuccessful. No beds were available. It was decided to watch the patient overnight in the hospital and continue efforts for transport. We discussed the possibility of [place] hospitals specifically [facility] or [facility] but she wanted to be closer to home. Reattempted arrangements for transfer to [facility] but was unsuccessful. Reviewed alternative options in the region specifically [facility] which was well-known to me and in which I have significant confidence both in interventional radiology and urology. She was willing. 3. Additional data: CBC on day of discharge showed white count of 9.9, hemoglobin of 12.4 and normal platelet count. KUB showed clearance of the contrast injected intraoperatively from the left collecting system. Could not elicit any radiographic evidence of a significant fluid collection but could not rule that out. 4. Dr. Suzanne Rodriguez, urologist at [facility] was willing to accept the patient and make arrangements for interventional radiology as indicated. 5. All dictations, pertinent films and labs have been accumulated and will be sent with the patient or transferred electronically to the [facility]. Additional information: She reports significant peripheral vascular disease requiring what she described as a vascular graft involving multiple arteries including left renal, at least 1 mesentery, and portions of her aorta. I could not elicit that extent of vascular grafts on her CT scan but she did appear to have at least one mesenteric stent. She thought maybe there was a renal artery replacement or repair during her partial nephrectomy in 2007 and she was unaware of any vein grafts etc. being harvested. Patient has had a clear liquid breakfast this morning and has been n.p.o. since that time. I spent a lot of time reviewing with the patient and her boyfriend the intraoperative findings, how things unfolded, and reasons for intraoperative decisions described above. We had discussed some of these potential concerns before surgery as a possibility but certainly did not expect it. The goal of avoiding further damage in hopes of antegrade stenting salvaging the impassable left UPJ, was described in detail as the reason for not trying to do more. They both expressed good understanding and were gracious. Physical Exam Const: COMMON NORMALS: no acute distress, alert and well nourished GENERAL APPEARANCE: well kempt and well developed ORIENTATION/CONSCIOUSNESS: not confused HENMT: COMMON NORMALS: normocephalic and atraumatic HEAD & SCALP: normocephalic and atraumatic Eye: COMMON NORMALS: conjunctivae normal and no scleral icterus CONJUNCTIVA: Yes conjunctivae normal Neck/C-Spine: COMMON NORMALS: full ROM GENERAL: Yes normal visual inspection Resp: COMMON NORMALS: normal respiratory effort EFFORT & INSPECTION: No labored and No Actively coughing Neuro: SENSORIUM/ORIENTATION: Yes alert Psych: COMMON NORMALS: mental status grossly normal APPEARANCE: Yes grossly normal and Yes well kempt ATTITUDE: Yes calm and Yes engaged Skin: COMMON NORMALS: no rashes or lesions noted and no jaundice GENERAL SKIN EXAM: no rashes or lesions noted Discharge Data Data Completed and Pending: Completed Studies During Hospitalization Category Date Time Status XR KUB portable [id number] Stat Exams 08/02/21 07:26 Ordered Labs from last 24 hours 08/02/21 02:34 WBC 9.9 RBC 3.95 L Hgb 12.4 Hct 38.5 MCV 97.5 MCH 31.4 MCHC 32.2 RDW 12.6 Plt Count 281 MPV 9.7 Neut % (Auto) 88.9 Lymph % (Auto) 6.5 Pike % (Auto) 4.1 Eos % (Auto) 0.0 Baso % (Auto) 0.2 Neut # (Auto) 8.82 H Lymph # (Auto) 0.7 L Pike # (Auto) 0.4 Eos # (Auto) 0.0 Baso # (Auto) 0.0 Nucleated RBC % (a uto) 0 Nucleated RBCs # 0.0 Vitals: Last Vital Signs Temp 99.8 F H 08/02/21 12:00 Pulse 68 08/02/21 12:00 Resp 17 08/02/21 12:51 BP 123/63 08/02/21 12:00 Pulse Ox 96 08/02/21 12:00 Discharge Plan Discharge Prescriptions: No Action metoprolol succinate 25 mg tablet extended release 24 hr 25 mg PO DAILY RF: 0 Bevespi Aerosphere 9-4.8 mcg HFA aerosol inhaler 2 puff inhalation BID RF: 0 rosuvastatin [Crestor] 5 mg tablet 5 mg PO DAILY RF: 0 pantoprazole [Protonix] 20 mg tablet,delayed release (DR/EC) 40 mg PO DAILY RF: 0 duloxetine [Cymbalta] 20 mg capsule,delayed release(DR/EC) 20 mg PO DAILY RF: 0 diazepam [Valium] 5 mg tablet 5 mg PO BID PRN (Reason: anxiety) Qty: 60 RF: 2 bupropion HCl [Wellbutrin XL] 300 mg tablet extended release 24 hr 300 mg PO QAM Qty: 30 RF: 2 omega-3 fatty acids [Fish Oil Concentrate] 1,000 mg capsule 1,000 mg PO DAILY RF: 0 dicyclomine 10 mg capsule 10 mg PO DAILY RF: 0 aspirin [Adult Low Dose Aspirin] 81 mg tablet,delayed release (DR/EC) 81 mg PO DAILY RF: 0 niacin 50 mg tablet 50 mg PO DAILY RF: 0 coenzyme Q10 300 mg capsule 600 mg PO DAILY RF: 0 topiramate [Topamax] 50 mg tablet 100 mg PO BID RF: 0 naltrexone tablet 4.5 mg PO DAILY RF: 0 losartan 25 mg tablet 25 mg PO DAILY RF: 0 acetaminophen 500 mg capsule 500 mg PO Q6H PRN (Reason: Pain) RF: 0 albuterol sulfate 90 mcg/actuation HFA aerosol inhaler 2 puff inhalation Q6H PRN (Reason: shortness of breath) RF: 0 chromium picolinate 1,000 mcg tablet 1,000 mcg PO DAILY RF: 0 halobetasol propionate 0.05 % cream 1 applic topical BID RF: 0 vitamin [id number] acid 0.5-1 mg Tablet 1 tab PO DAILY RF: 0 Discharge Attestations Time Spent in Discharge Care*: greater than 30 min Specific Discharge Activities: educating patient, discussing with pcp/other providers, discussing with child welfare caseworker/social workers/dc planners, documenting/other paperwork and evaluating patient/reviewing data Quality Metrics Clinical Quality Measures During this hospital stay, did patient experience: None Coding Level of Care Code Acute Chg FW DC note Diagnoses Ureter perforation N28.89 Left ureteral calculus N20.1 Urinary extravasation R39.0 Left flank pain R10.9 History of renal cell carcinoma Z85.528 Atherosclerotic coronary vascular disease I25.10 Peripheral vascular disease I73.9 Post-traumatic stress disorder, chronic F43.12
--- NOTE | 2021-08-02 22:05 | PC.NURSE ---
Patient left via EMT at shift change. DID not assess or recieve report. Just removing from system
== END 2021-08-02 18:45 | disposition home or self-care (01) ==
LOC: OR 11:16 → MEDSURG 08-02 07:39
PROVIDERS: PCP Nurse Practitioner Family; Visit Provider Urology
PROC: 0TJB8ZZ Inspection of Bladder, Via Natural or Artificial Opening Endoscopic (ICD-10-PCS; CPT 52000; 2021-08-01 13:00)
PROC: (CPT 74420; 2021-08-01 13:00)
PROC: 0TJ98ZZ Inspection of Ureter, Via Natural or Artificial Opening Endoscopic (ICD-10-PCS; CPT 52351; 2021-08-01 13:00)
DX: N20.0 Calculus of kidney (principal); N30.20 Other chronic cystitis without hematuria; N28.1 Cyst of kidney, acquired; I10 Essential (primary) hypertension; K21.9 Gastro-esophageal reflux disease without esophagitis; E78.5 Hyperlipidemia, unspecified; Z85.528 Personal history of other malignant neoplasm of kidney; Z90.5 Acquired absence of kidney; Z79.82 Long term (current) use of aspirin
CPT/HCPCS: 52351; 36415; 74018; 76000; 85014; 85018; 85025; 93005; J1100; J1956; J2270; J2405; J2704; J3010; J3490; J7030

== ENCOUNTER → 2021-10-18 13:03 | Outpatient (BNVA) | payer MEDICAID, SELFPAY | PROVIDERS: PCP Nurse Practitioner Family; Visit Provider Nurse Practitioner | DX: F43.12 Post-traumatic stress disorder, chronic (principal) | CPT/HCPCS: 99214 ==

== ENCOUNTER → 2022-01-20 11:47 | Outpatient (BNVA) | payer MEDICAID, SELFPAY | PROVIDERS: PCP Nurse Practitioner Family; Visit Provider Nurse Practitioner | DX: F43.12 Post-traumatic stress disorder, chronic (principal) | CPT/HCPCS: 99214 ==